=== PATIENT | female | born 1990 | race Caucasian/White ===

== ENCOUNTER 2022-11-04 15:16 | Outpatient (CLI) | payer BC, SELFPAY ==
[2022-11-04 18:49] LABS: Hepatitis B Surface Antigen* Negative (Negative)
[2022-11-04 18:58] LABS: HIV 1/2/P24 Combo Screen* Negative (Negative)
[2022-11-04 19:07] LABS: Hepatitis C Virus Antibody* Negative (Negative)
[2022-11-04 19:07] LABS: Chlamydia DNA Amplified* NOT DETECTED (No Detected); GC DNA Amplified* NOT DETECTED (No Detected)
[2022-11-07 04:13] LABS: Varicella-Zoster Virus Ab, IgG 581.4 IV
[2022-11-07 04:15] LABS: Rubella Antibody IgG 32.3 IU/mL
[2022-11-07 04:23] LABS: Rapid Plasma Reagin (RPR) Non Reactive (Non Reactive)
== END 2022-11-04 15:17 | disposition home or self-care (01) ==
PROVIDERS: Visit Provider Physician Assistant
DX: Z34.91 Encounter for supervision of normal pregnancy, unspecified, first trimester (principal)
CPT/HCPCS: 76817; 86592; 86703; 86762; 86787; 86803; 86850; 86900; 86901; 87086; 87340; 87491; 87591

== ENCOUNTER 2023-01-27 09:14 | Outpatient (CLI) | payer BC, SELFPAY ==
--- NOTE | 2023-01-27 09:15 | CRLHL7_ITS ---
For Patients: As a result of the Century Cures Act, medical imaging exams and procedure reports are released immediately into your electronic medical record. You may view this report before your referring provider. If you have questions, please contact your health care provider. INDICATION: Evaluate anatomy. COMPARISON: 11/04/2022 TECHNIQUE: Real time herrera scale imaging of the fetus was performed as well as color Doppler analysis of the umbilical vessels. FINDINGS: Sonographic imaging demonstrates a single living intrauterine gestation. Fetus demonstrates a regular cardiac rate of 143 beats per minute. Fetus has a variable position. The placenta lies posteriorly without evidence of placenta previa. The edge of the placenta is located 4.9 cm from the internal cervical os. Amniotic fluid volume appears normal. Single deepest vertical pocket: 4.4 cm. The cervix is closed and measures 4.6 cm in length. The composite ultrasound gestational age is calculated at 20 weeks 3 days with an estimated sonographic due date of 06/13/2023. The estimated weight is 364 grams which lies at the 79th %. The following biometric measurements were obtained: Biparietal diameter: 4.8 cm/20 weeks 3 days 70th% Head circumference: 17.9 cm/20 weeks 2 days 57th% Abdominal circumference: 16.0 cm/21 weeks 0 days 78th% Femur length: 3.2 cm/20 weeks 1 day 47th% The HC/AC ratio measures: 1.02 range (1.07-1.25) On anatomic survey, there is a normal appearance of the cerebral ventricles, cavum septi pellucidi, cisterna magna and cerebellum. The nose, lips, and facial profile appear normal. The cervical, thoracic and lumbar spine are well visualized and appear normal. There is a normal four-chamber heart view and the left and right ventricular outflow tracts appear normal. The diaphragm and stomach appear normal. The kidneys and bladder also appear normal. There is a normal three-vessel cord and cord insertion site. The four extremities appear normal. IMPRESSION: Normal OB ultrasound exam with concordance of clinical and sonographic dating. No intrinsic abnormalities noted on anatomic survey. Dictated by Henry Grier MD @ 01/27/2023 11:10:24 AM (Electronically Signed)
== END 2023-01-27 09:15 | disposition home or self-care (01) ==
LOC: US 09:15
PROVIDERS: PCP Family Medicine; Visit Provider Physician Assistant
DX: Z34.82 Encounter for supervision of other normal pregnancy, second trimester (principal); Z3A.20 20 weeks gestation of pregnancy
CPT/HCPCS: 76805

== ENCOUNTER 2023-05-30 09:16 | Outpatient (CLI) | payer BC, SELFPAY | END 2023-05-30 09:17 | disposition home or self-care (01) | LOC: NFLDREF 06-01 06:43 | PROVIDERS: PCP Family Medicine; Referring Provider Family Medicine; Visit Provider Obstetrics & Gynecology | DX: Z34.93 Encounter for supervision of normal pregnancy, unspecified, third trimester (principal); Z3A.37 37 weeks gestation of pregnancy | CPT/HCPCS: 87081; 87653 ==

== ENCOUNTER 2023-06-09 15:02 | Outpatient (CLI) | payer BC, SELFPAY ==
--- NOTE | 2023-06-09 15:00 | CRLHL7_ITS ---
For Patients: As a result of the Cures Act, medical imaging exams and procedure reports are released immediately into your electronic medical record. You may view this report before your referring provider. If you have questions, please contact your health care provider. INDICATION: female. Size less than dates. TECHNIQUE: Obstetrical ultrasound. COMPARISON: January 27, 2023. FINDINGS: Single living intrauterine in vertex presentation. Mature appearing placenta. heart rate 125 beats per minute. Normal amniotic fluid. Single deepest pocket measurement 4.4 cm. Biparietal diameter 9.5 cm, 38 weeks 6 days, 77th percentile. Head circumference 35.1 cm, 40 weeks 6 days, 80th percentile. Abdominal circumference 37.9 cm, 41 weeks 6 days, greater than 97th percentile. Femur length 7.6 cm, 38 weeks 5 days, 49th percentile. Composite calculated ultrasound age 40 weeks 1 day with a sonographic due date of June 16, 2023. Appropriate growth and maturation compared to the prior study. Estimated weight 4,167 g which lies at the 95th percentile. The head to abdominal circumference ratio is normal at 0.93 (0.90-1.03). IMPRESSION: Single living intrauterine with a composite calculated ultrasound age of 40 weeks 1 day with a sonographic due date of June 08, 2023. Appropriate growth and maturation compared to the prior study. Dictated by Riley Henderson MD @ 06/09/2023 7:57:29 PM (Electronically Signed)
== END 2023-06-09 15:03 | disposition home or self-care (01) ==
LOC: US 15:02
PROVIDERS: PCP Family Medicine; Visit Provider Physician Assistant
DX: O36.5930 Maternal care for other known or suspected poor fetal growth, third trimester, not applicable or unspecified (principal); Z3A.40 40 weeks gestation of pregnancy
CPT/HCPCS: 76816

== ENCOUNTER 2023-06-15 19:59 | Inpatient (IN) | payer BC, SELFPAY ==
[2023-06-15] VITALS (10 sets, daily range): BP systolic 115–129; BP diastolic 57–74; PULSE 80–108; RESP 16–18; TEMP 36.7; O2SAT 98; BMI 23.9
--- NOTE | 2023-06-15 20:27 | W.PM.LDBA ---
Subjective History of Present Illness Time Seen by Provider: 20:27 Date Seen: 06/15/23 Narrative: Patient is being admitted to Labor and Delivery for active labor - cervical exam: / on admission. SROM shortly after arrival in triage. She is a 32 year old at 39.6 weeks gestation. Her full history and physical was dictated by Dr. Fidencio Milligan on 05/30/23. Please see this for details. GBS negative. OB - Problem Based A/P Additional Plan (1) Spontaneous onset of labor: Status: Acute Delivery/Labor/Induction Plan Plan: expectant management OB Exam Physical Exam Vital signs: Temp Pulse Resp BP Pulse Ox 98.1 F 108 H 18 120/74 98 06/15/23 20:11 06/15/23 20:12 06/15/23 20:11 06/15/23 20:12 06/15/23 20:11 Narrative: Physical exam: General: Patient in obvious labor pain during contractions Psych: Alert and oriented x3, full affect HEENT: Normocephalic, atraumatic Lungs: Patient breathing well through contractions Neuro: No focal deficit. Mentating appropriately Abdomen: Gravid. Palpable contractions. Pelvic exam: Gross ROM - clear fluid. /0.
[2023-06-15] MEDS: OXYTOCIN 10 UNIT/ML INJ IM (21:27)
[2023-06-15] MEDS: LIDOCAINE 1 % PF 30 ML INJECTION (21:30)
--- NOTE | 2023-06-15 21:51 | W.PM.VAGDEL1 ---
Procedure Delivery date: 06/15/23 Procedure Done: Global Procedure Details: Elmira is a 32 year-old G3 P 1011 admitted on 06/15/2023 at 39 and 6/7 weeks gestation for spontaneous onset of labor/ruptured membranes. Cervical exam on admission was 6 cm/90 % effaced/0 station with membranes intact in vertex presentation. Contractions were every 2-3 minutes. heart rate demonstrated baseline 120 bpm with moderate variability, + accelerations, - decelerations; a category I tracing. GBS negative. SROM occurred at 0810 on 06/15 with clear fluid. Labor Analgesia: None Pitocin: No Labor onset: 06/15/2023 at approximately 5 pm Complete: 06/15/2023 at 2108 Pushin06/15/2023 at 2108 heart tones during second stage were Cat I At 2122 a viable female infant delivered in vertex OA presentation via spontaneous vaginal delivery. was placed on maternal abdomen. Cord was clamped and cut after a 30-60 second delay. Nose and mouth were bulb suctioned. Infant weight: Pending. 8 at 1 minute and 9 at 5 minutes. Shoulder dystocia: No. Nuchal cord: No . Placenta delivered spontaneously and complete at 2124 with a 3 vessel cord. Complications: None. Mother and were stable after delivery. Laceration(s): 1st degree (along the line of her old episiotomy, repaired with 2-0 Vicryl in continuos locking manner. Qualitative blood loss: 100 mL. Sponge and needles counts are correct. Mother and infant were stable at the time of this note. She is planning on .
[2023-06-16 03:02] VITALS: BP 111/64; PULSE 81; RESP 16; TEMP 36.6; O2SAT 96
[2023-06-16] MEDS: IBUPROFEN 600 MG TABLET PO (03:31)
[2023-06-16 07:08] LABS: Hemoglobin* 11.8 gm/dL (12.0-16.0)
[2023-06-16 07:15] VITALS: BP 105/73; PULSE 78; RESP 16; TEMP 36.4; O2SAT 96
--- NOTE | 2023-06-16 08:10 | PM.OBDSVD1 ---
DS: Providers Provider Date Seen: 06/16/23 Date of admission: 06/15/23 19:59 Primary care physician: Keri Erickson DO Admitting Clinician: Ladi Cabrera MD Attending Physician on discharge: Ladi Cabrera MD Date of Discharge: 06/16/23 DS: Diagnosis Discharge Diagnosis (1) care following vaginal delivery: Status: Acute (2) Lactating mother: Status: Acute Exam Narrative: Exam Narrative: GENERAL APPEARANCE:? normal affect, alert, no distress? MOOD:? appropriate? CHEST:? clear to auscultation and percussion? HEART:? regular rate and rhythm? ABDOMEN:? soft, non-tender the uterine fundus is 2 cm Below Umbilicus, Midline and is appropriate for the stage of recovery. ? PERINEUM:? mild edema of the perineum, there is a 2nd degree that is healing well.? EXTREMITIES:? normal and no edema? Patient has no complaints? No active bleeding?? Doing well? She is requesting discharge home.? Const: Vital Signs, click to edit/add: Vital Signs - 24 hr 06/15/23 20:11 06/15/23 20:11 06/15/23 20:12 Temperature 98.1 F Pulse Rate 108 H Pulse Rate [Pulse Oximeter] Respiratory Rate 18 Blood Pressure 120/74 Blood Pressure [Le ft Arm] Pulse Oximetry [facility] 21:33 06/15/23 21:33 06/15/23 21:47 Temperature Pulse Rate 94 98 Pulse Rate [Pulse Oximeter] Respiratory Rate 17 Blood Pressure 129/59 L 115/57 L Blood Pressure [Le ft Arm] Pulse Oximetry Oxygen Delivery Pr thod 06/15/23 21:47 06/15/23 22:00 06/15/23 22:00 Temperature Pulse Rate 92 Pulse Rate [Pulse Oximeter] Respiratory Rate 16 17 Blood Pressure 128/61 Blood Pressure [Le ft Arm] Pulse Oximetry Oxygen Delivery Pr thod 06/15/23 22:18 06/15/23 22:48 06/15/23 23:07 Temperature Pulse Rate 80 88 86 Pulse Rate [Pulse Oximeter] Respiratory Rate Blood Pressure 128/65 121/65 129/66 Blood Pressure [Le ft Arm] Pulse Oximetry Oxygen Delivery Pr thod 06/15/23 23:18 06/15/23 23:33 06/16/23 03:02 Temperature 97.9 F Pulse Rate 95 84 Pulse Rate [Pulse Oximeter] 81 Respiratory Rate 16 Blood Pressure 121/60 119/64 Blood Pressure [Le ft Arm] 111/64 Pulse Oximetry 96 Oxygen Delivery Me thod Room Air 06/16/23 07:15 Temperature 97.5 F L Pulse Rate Pulse Rate [Pulse Oximeter] 78 Respiratory Rate 16 Blood Pressure Blood Pressure [Le ft Arm] 105/73 Pulse Oximetry 96 Oxygen Delivery Me thod Room Air Documenting provider has reviewed patient's vital signs: yes OB - DS: Summary Hospital Course Hospital Course: Patient is a 32year old, G 3 now P 2? admitted on 06/15/23 at 39 Weeks, 6 Days gestation for labor.? She had an uncomplicated vaginal delivery.? She delivered a viable female infant.? She is breast feeding and reports things are well.? the patient has done well.? Her pain is well controlled with current medications.? She has no new complaints.? Vitals have been stable. She has remained afebrile. She is voiding without difficulty. She is passing gas and has not had a bowel movement. She is ambulating and denies any dizziness. She is planning a diaphragm for control.?She feels that she will likely desire to discharge this evening after 24hour testing is complete but is not certain. Wants to wait and see how today goes.?? Peripartum Data delivery method: Vaginal Laceration description: Perineal - 2nd Degree Episiotomy description: None complications: none [place] Gender: Female Discharge Plan: Home Status at Discharge Functional status at discharge: independent ambulation Overall status at discharge: patient is progressing back to baseline Time Spent with Patient Time attestation: Total time spent providing and/or coordinating discharge services: Discharge Plan Discharge Disposition: Home, Self-Care Date of Admission: 06/15/23 19:59 Attending Provider on Discharge: Perri Javier Primary Care Provider: Keri Erickson Condition: Stable Anticipated Discharge Date/Time: 06/16/23 23:00 Discharge Medications: New docusate sodium 100 mg Capsule 100 mg PO DAILY Qty: 60 0RF Rx Instructions: Take 1-2 tablets daily as needed for constipation. ibuprofen 600 mg Tablet 600 mg PO Q6H PRNQty: 30 0RF Continued DHA 200 mg capsule PO cholecalciferol (vitamin D3) 10 mcg (400 unit) capsule 10 mcg PO QDAY ferrous sulfate [Feosol] 325 mg (65 mg iron) tablet 325 mg PO QDAY Discontinued ds-[id number]-fish oil-vit D3 120 mg-180 mg -1,000 unit capsule PO DAILY Discharge Orders: Discharge Order (Routine); Ordered 06/16/23 Ordered By: Perri Javier Additional Instructions: Discharge instructions were reviewed with the patient including signs and symptoms of infection and home going medications.? Lifting Restrictions: 20 pounds for 6? weeks? ?? Do not drive while taking narcotic pain meds.? Off Work or School for 6 weeks.? ?? Symptoms to report to doctor:? -Bleeding that saturates more than one pad per hour? -Passing clots larger than the size of a golf ball? -Pain not relieved by prescribed medication? -Fever above 100.4 degrees Fahrenheit? -A foul vaginal odor? -Difficulty in emotions, mood and functions? -Thoughts of hurting yourself and/or ? -Painful, reddened area in your breast? -Any drainage, redness or tenderness in your IV/epidural site? -Severe headache that doesn't improve after taking medications? -Changes in vision, including temporary loss of vision, blurred vision, and/or light sensitivity? -Upper abdominal pain (usually under ribs on the right side)? -Decrease in urination or painful, frequent urinating? -Chest pain? -Shortness of breath? -Tenderness or pain with redness and/swelling in the calf(s) of your leg? ?? Follow Up in clinic in 2 and 6 weeks.? ?? consultation services are available to all mothers and babies for the first year after delivery.? To make an appointment, please call [phone].? Activity Level: Activity as Tolerated Discharge Diet: Regular Follow Up Appointments: [facility] [Provider Group] Keri Erickson DO [Primary Care Provider] - Forms: MyHealth Info Instructions
[2023-06-16 11:05] VITALS: BP 114/75; PULSE 85; RESP 16; TEMP 36.6; O2SAT 96
[2023-06-16 15:35] VITALS: BP 112/72; PULSE 89; RESP 16; TEMP 36.5; O2SAT 96
[2023-06-16 19:35] VITALS: BP 108/69; PULSE 86; RESP 16; TEMP 36.8; O2SAT 96
== END 2023-06-16 22:36 | disposition home or self-care (01) | DRG 560 ==
LOC: OB OUT 20:00 → OB 20:00
PROVIDERS: Admitting Provider Obstetrics & Gynecology; PCP Family Medicine; Visit Provider Obstetrics & Gynecology
DX: O70.0 First degree perineal laceration during delivery (principal); Z37.0 Single live birth
CPT/HCPCS: 36415; 85018; A9270; J2001; J2590

== ENCOUNTER 2023-10-30 08:30 | Outpatient (RCR) | payer BC, SELFPAY | END 2024-02-25 13:41 | disposition home or self-care (01) | PROVIDERS: PCP Family Medicine; Visit Provider Registered Nurse | DX: M62.08 Separation of muscle (nontraumatic), other site (principal); R27.8 Other lack of coordination; Z51.89 Encounter for other specified aftercare | CPT/HCPCS: 97110; 97112; 97140; 97161; 97535 ==

== ENCOUNTER 2025-08-31 08:04 | Outpatient (CLI) | payer BC, SELFPAY | END 2025-08-31 08:05 | disposition home or self-care (01) | LOC: FRMREF 08:06 | PROVIDERS: Visit Provider Nurse Practitioner Family | DX: Z13.6 Encounter for screening for cardiovascular disorders (principal); Z13.1 Encounter for screening for diabetes mellitus; D64.9 Anemia, unspecified | CPT/HCPCS: 80061; 82728; 82947 ==